=== PATIENT | male | born 1940 | race Caucasian/White ===

== ENCOUNTER 2019-03-24 00:34 | Inpatient (IN) | payer OTHER, MEDICARE ==
--- NOTE | 2019-03-24 00:53 | PDOC ---
History of Present Illness - General Chief Complaint: Injury Stated Complaint: FALL Time Seen by Provider: 03/24/19 00:42 - History of Present Illness Initial Comments: 03/24/19 01:24 This 78-year-old man, history of DM/HTN/HLD/bilateral knee replacement is brought in by ambulance, accompanied by his son with a history of an unwitnessed fall tonight. 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 Patient describes feeling very weak a few hours prior to presentation, possibly" passing out", as he arose from his chair (using his walker) to go to the bathroom. He fell onto his right side; he does not recall hitting his head and when his son arrived in the room a few minutes later, the patient was conscious. Patient is complaining of pain in his right chest wall/right shoulder/right hip and right knee. He has not been able to bear weight since the fall secondary to pain. Son was unable to lift the patient and EMS was called. According to the son, the patient has had several week history of difficulty with persistent nausea and vomiting after meals. He was seen by his map compiler in [place] few weeks ago and endoscopy was planned for yesterday; patient unfortunately was not cleared by cardiology and the procedure is rescheduled for March 26. Son describes patient as currently able to eat only small amounts of water or broth and protein shakes twice a day. Past History - Past Medical History Allergies/Adverse Reactions: Allergies Allergy/AdvReac Type Severity Reaction Status Date / Time No Known Drug Allergies Allergy Verified 03/24/19 00:50 strawberry Allergy Verified 03/24/19 00:50 Home Medications: Ambulatory Orders Atorvastatin Calcium 40 mg PO DAILY 03/24/19 Duloxetine HCl 60 mg PO BID 03/24/19 Furosemide [Lasix] 20 mg PO DAILY 03/24/19 Gabapentin 600 mg PO BID 03/24/19 Lisinopril [Prinivil -] 40 mg PO DAILY 03/24/19 Metformin HCl [Glucophage] 1,000 mg PO BID 03/24/19 levoFLOXacin [Levaquin -] 250 mg PO DAILY 03/24/19 COPD: No Diabetes: Yes HTN: Yes Hypercholesterolemia: Yes Psychiatric Problems: Yes Other medical history: CHRONIC PAIN - Psycho Social/Smoking Cessation Hx Smoking History: Unknown if ever smoked Have you smoked in the past 12 months: No Information on smoking cessation initiated: No Review of Systems - Review of Systems Able to Perform ROS?: Yes Comments:: 12 point review of systems is negative except for what is noted in the history of present illness *Physical Exam - Vital Signs Last Vital Signs Temp Pulse Resp BP Pulse Ox 97.6 F 103 H 16 111/60 100 03/24/19 00:40 03/24/19 00:40 03/24/19 00:40 03/24/19 00:40 03/24/19 00:40 - Physical Exam Comments: GENERAL: Elderly man, alert and oriented x3; in mild distress secondary to pain HEAD: Normal with no signs of trauma. EYES: PERRLA, EOMI, sclera anicteric, conjunctiva clear. ENT: Ears normal, nares patent, oropharynx clear without exudates. Dry mucous membranes. NECK: Normal range of motion, supple without lymphadenopathy, JVD, or masses. Tenderness to palpation midline cervical spine C3-C6 LUNGS: Breath sounds equal, clear to auscultation bilaterally. No wheezes, and no crackles. CHEST WALL: Moderate tenderness to palpation lower right anterior aspect at posterior axillary line; no crepitus or step-offs palpated HEART:Regular rate and rhythm, normal S1 and S2 without murmur, rub or gallop. ABDOMEN:.normal bowel sounds No guarding,tenderness or rebound.No masses No distention. EXTREMITIES: Right upper extremity: Tenderness to palpation posterior proximal humerus without edema, ecchymosis or deformity seen Right lower extremity: Mild tenderness to palpation of anterior aspect of hip joint; Mild tenderness/abrasions anterior knee at patella; no edema, deformity or ecchymosis seen NEUROLOGICAL: Cranial nerves II through XII grossly intact. Normal speech. No focal neurological deficits.Gait not tested MUSCULOSKELETAL: Back non-tender to palpation, no CVA tenderness Twelve-lead electrocardiogram performed. Preliminary interpretation sinus tachycardia at 105 bpm; poor R wave progression; axis, and intervals are normal. No acute ST or T wave abnormality seen. No acute cardiac arrhythmia seen. No prior EKG tracing present for comparison ED Treatment Course - LABORATORY CBC & Chemistry Diagram: 03/24/19 01:55 03/24/19 01:55 Medical Decision Making - Medical Decision Making 78-year-old man with history of DM/HTN/HLD is brought in by ambulance after falling at his son's home, where he is currently staying. Patient has been increasingly weak and having frequent falls over the last several days. He has a history of postprandial vomiting for several weeks; GI work-up including upper endoscopy planned by his map compiler at home in [place]. Meanwhile, the patient's oral intake continues to be poor. Exam as noted Laboratory evaluation including CBC/chemistry profile/troponin and urinalysis sent. Head CT/cervical spine CT as well as R rib series/shoulder/hip and pelvis/knee were performed. CT head and cervical spine preliminary interpretation by Imaging data center consultant: CT of head-no acute intracranial process; no skull fracture moderate left maxillary sinus thickening and air-fluid level consistent with acute sinusitis. Cervical spine-no fracture dislocation Preliminary interpretation(by me)of right shoulder/rib/hip/knee and pelvis x- rays reveal no evidence of acute fracture or other acute pathology. Laboratory abnormalities most notable for BUN of 154.9 with a creatinine of 2.5. Patient and his son were asked about previous history of renal insufficiency: According to the patient, last time he was seen by his PMD in [place] (approximately last month) he was told that he was dehydrated but cannot recall being told that he had kidney damage. Potassium is minimally elevated at 5.4. Random glucose is mildly elevated at 215. He has mild anemia at 11 Hgb/34Hct. Blood cell count is mildly elevated at 11, 500. No significant abnormality seen in UA Since we do not have patient's baseline creatinine/BUN, it is impossible to determine if there is ADRIANE present versus acute dehydration. However, since his BUN is proportionally markedly elevated as compared to his creatinine, there must be some component of dehydration. Since patient has been having frequent falls, with a history suggestive of progressive weakness, inpatient admission warranted for gentle rehydration with assessment of renal function as well as evaluation/treatment of gait disorder. The patient and his son understand the plan and agreed to it. 03/24/19 04:49 Case discussed with ANNEMARIE Stoner of [facility] service: Patient will be admitted as inpatient, Dr. Petty's service Discharge - Discharge Information Problems reviewed: Yes Clinical Impression/Diagnosis: ADRIANE (acute kidney injury), Gait disorder Condition: Fair - Admission Yes - Follow up/Referral - Patient Discharge Instructions - Post Discharge Activity
[2019-03-24] MEDS ORDERED: ACETAMINOPHEN 1000 MG/100 ML VIAL (NON FORMULARY) IVPB ONE (01:23)
[2019-03-24] MEDS ORDERED: ACETAMINOPHEN INJECTION 100 ML IVPB ONE (01:24)
[2019-03-24 02:09] LABS: BASO % 0.8 % (0-2.0); EOS % 1.7 % (0-4.5); HEMATOCRIT 33.9 % (35.4-49); HEMOGLOBIN 11.1 GM/dL (11.7-16.9); LYMPH % 9.1 % (8-40); MCH 30.1 pg (25.7-33.7); MCHC 32.9 g/dl (32.0-35.9); MEAN CELL VOLUME 91.4 fl (80-96); MEAN PLT VOLUME 9.2 fl (7.5-11.1); NEUT % 82.4 % (42.8-82.8); PLATELET COUNT 287 K/MM3 (134-434); RBC 3.71 M/mm3 (4.00-5.60); RDW 15.1 % (11.9-15.9); WHITE BLOOD COUNT 11.3 K/mm3 (4.0-10.0)
[2019-03-24 02:10] LABS: URINE APPEARANCE CLEAR; URINE BILIRUBIN NEGATIVE (NEGATIVE); URINE COLOR YELLOW; URINE GLUCOSE (UA) NEGATIVE (NEGATIVE); URINE KETONE NEGATIVE (NEGATIVE); URINE LEUK ESTERASE NEGATIVE (NEGATIVE); URINE NITRITE NEGATIVE (NEGATIVE); URINE PROTEIN NEGATIVE (NEGATIVE); URINE UROBILINOGEN 0.2 mg/dL (0.2-1.0)
[2019-03-24 03:25] LABS: ALBUMIN 3.1 g/dl (3.4-5.0); ALK PHOS 83 U/L (45-117); ANION GAP 13 MMOL/L (8-16); BILIRUBIN,TOTAL 0.5 mg/dL (0.2-1); CALCIUM 9.4 mg/dL (8.5-10.1); CHLORIDE 102 mmol/L (98-107); CO2 18 mmol/L (21-32); CREATININE 2.5 mg/dL (0.55-1.3); GLUCOSE,RANDOM 215 mg/dL (74-106); POTASSIUM 5.4 mmol/L (3.5-5.1); SGOT/AST 18 U/L (15-37); SGPT/ALT 20 U/L (13-61); SODIUM 133 mmol/L (136-145)
[2019-03-24 03:34] LABS: BLOOD UREA NITROGEN 154.9 mg/dL (7-18)
[2019-03-24] MEDS ORDERED: SODIUM CHLORIDE 1,000 ML IV STA (04:38)
[2019-03-24] MEDS ORDERED: SODIUM CHLORIDE 1,000 ML IV SCH (05:30)
[2019-03-24 06:41] LABS: ANISOCYTOSIS 0; HELMET CELLS 0; HOWELL-JOLLY BODIES 0; MACROCYTOSIS 0; OVALOCYTE 0; PLATELET ESTIMATE NORMAL; ROULEAU 0; SICKELED CELLS 0; TARGET CELLS 0; TEAR DROP CELLS 0; TOXIC GRANULATION 0
[2019-03-24 07:05] VITALS: BMI 26.1
--- NOTE | 2019-03-24 08:44 | HP ---
CHIEF COMPLAINT: s/p unwitnessed fall PCP: Cathi Haley Dr. HISTORY OF PRESENT ILLNESS: This is a 78-year-old man with a history of DM/HTN/HLD/bilateral knee replacement and chronic pain, who was BIBA from home by his son for the evaluation lower back pain after an unwitnessed fall. Pt reports that when he tried to get up from the chair to go the bathroom using his walker, lost balance and fell on his Rt side. Denies LOC or head injury. Son found him on the floor face down and he was not able to lift the patient so he called EMS. Off note, pt was living with his in [place], since his had a recent CVA,now he stays with his son for few weeks. According to his son, he has not eating solid food due to nausea/ vomiting, and noted to have worsening weakness. Son reports,currently he is only able to eat small amounts of water or broth and protein shakes twice a day. Pt was reportedly seen by a GI doctor in [place] recently and rec Endoscopy but pt was not cleared by cardiology for the procedure. As per son, pt was seen by PMD last week and reported mildly elevated renal functions( unknown baseline). ER course was notable for: (1) wbc 11.3, H/H 11.1/33.9, N 133, K 5.4,, BUN 154,cre 2.5, trop <0.2 (2)CT head and cervical spine - no acute fracture (3)Ribs X'ray: No acute pneumonia or rib fx noted Recent Travel:No PAST MEDICAL HISTORY: Prostate Ca, s/p radiation PAST SURGICAL HISTORY: bilateral knee replacement, 7operations on right foot and 4 operations on left Social History: Smoking:No Alcohol:No Drugs: No Family Hx - unknown Allergies No Known Drug Allergies Allergy (Verified 03/24/19 00:50) strawberry Allergy (Verified 03/24/19 00:50) HOME MEDICATIONS: Home Medications Medication Instructions Recorded Atorvastatin Calcium 40 mg PO DAILY 03/24/19 Duloxetine HCl 60 mg PO BID 03/24/19 Furosemide [Lasix] 20 mg PO DAILY 03/24/19 Gabapentin 600 mg PO BID 03/24/19 Lisinopril [Prinivil -] 40 mg PO DAILY 03/24/19 Metformin HCl [Glucophage] 1,000 mg PO BID 03/24/19 levoFLOXacin [Levaquin -] 250 mg PO DAILY 03/24/19 REVIEW OF SYSTEMS CONSTITUTIONAL: Absent: fever, chills, diaphoresis, weight change positive generalized weakness, malaise, loss of appetite HEENT: Absent: rhinorrhea, nasal congestion, throat pain, throat swelling, difficulty swallowing, mouth swelling, ear pain, eye pain, visual changes CARDIOVASCULAR: Absent: chest pain, syncope, palpitations, irregular heart rate, lightheadedness , peripheral edema RESPIRATORY: Absent: cough, shortness of breath, dyspnea with exertion, orthopnea, wheezing, stridor, hemoptysis GASTROINTESTINAL: Absent: abdominal pain, abdominal distension, nausea, vomiting, diarrhea, constipation, melena, hematochezia GENITOURINARY: Absent: dysuria, frequency, urgency, hesitancy, hematuria, flank pain, genital pain MUSCULOSKELETAL: Absent: myalgia, arthralgia, joint swelling, back pain, neck pain SKIN: Absent: rash, itching, pallor HEMATOLOGIC/IMMUNOLOGIC: Absent: easy bleeding, easy bruising, lymphadenopathy, frequent infections ENDOCRINE: Absent: unexplained weight gain, unexplained weight loss, heat intolerance, cold intolerance NEUROLOGIC: Absent: headache, focal weakness or paresthesias, dizziness, unsteady gait, seizure, mental status changes, bladder or bowel incontinence PSYCHIATRIC: Absent: anxiety, depression, suicidal or homicidal ideation, hallucinations. PHYSICAL EXAMINATION Vital Signs - 24 hr 03/24/19 03/24/19 03/24/19 00:40 04:25 06:00 Temperature 97.6 F 97.3 F L 97.4 F L Pulse Rate 103 H 102 H Pulse Rate [ 100 H Radial] Respiratory 16 16 19 Rate Blood Pressure 111/60 126/50 L Blood Pressure 107/60 [Arm] O2 Sat by Pulse 100 96 Oximetry (%) 03/24/19 06:29 Temperature 97.4 F L Pulse Rate 102 H Pulse Rate [ Radial] Respiratory 19 Rate Blood Pressure 126/50 L Blood Pressure [Arm] O2 Sat by Pulse 96 Oximetry (%) GENERAL: Awake, alert, responsive but forgetful,no acute distress. HEAD: Normal with no signs of trauma. EYES: Pupils equal, round and reactive to light, extraocular movements intact, sclera anicteric, conjunctiva clear. No lid lag. EARS, NOSE, THROAT: Ears normal, nares patent, oropharynx clear without exudates. Moist mucous membranes. NECK: Normal range of motion, supple without lymphadenopathy, JVD, or masses. LUNGS: Breath sounds equal, clear to auscultation bilaterally. No wheezes, and no crackles. No accessory muscle use. HEART: Regular rate and rhythm, normal S1 and S2 without murmur, rub or gallop. ABDOMEN: Soft, nontender, not distended, normoactive bowel sounds, no guarding, no rebound, no masses. No hepatomegaly or splenomegaly. MUSCULOSKELETAL: Normal range of motion at all joints. No bony deformities or tenderness. No CVA tenderness. UPPER EXTREMITIES: 2+ pulses, warm, well-perfused. No cyanosis. No clubbing. No peripheral edema. LOWER EXTREMITIES: 2+ pulses, warm, well-perfused. No calf tenderness. No peripheral edema. RLE with PVD and chronic discoloration, pulse intact, and NEUROLOGICAL: Cranial nerves II-XII intact. Normal speech. gait not tested PSYCHIATRIC: Cooperative. Good eye contact. Appropriate mood and affect. SKIN: Warm, dry, normal turgor, no rashes or lesions noted, normal capillary refill. Tiny abrasions on Rt knee and Rt 2nd toe. Laboratory Results - last 24 hr 03/24/19 03/24/19 03/24/19 01:05 01:55 01:55 WBC 11.3 H RBC 3.71 L Hgb 11.1 L Hct 33.9 L MCV 91.4 MCH 30.1 MCHC 32.9 RDW 15.1 Plt Count 287 MPV 9.2 Absolute Neuts (auto) 9.3 H Neutrophils % 82.4 Neutrophils % (Manual) 81.8 Band Neutrophils % 1.0 Lymphocytes % 9.1 Lymphocytes % (Manual) 9.1 Monocytes % 6.0 Monocytes % (Manual) 5 Eosinophils % 1.7 Eosinophils % (Manual) 2.0 Basophils % 0.8 Basophils % (Manual) 0.0 Myelocytes % (Man) 0 Promyelocytes % (Man) 0 Blast Cells % (Manual) 0 Nucleated RBC % 0 Metamyelocytes 1 Hypochromia 0 Toxic Granulation 0 Dohle Bodies 0 Platelet Estimate Normal Polychromasia 0 Poikilocytosis 0 Basophilic Stippling 0 Anisocytosis 0 Microcytosis 0 Macrocytosis 0 Spherocytes 0 Sickle Cells 0 Target Cells 0 Tear Drop Cells 0 Ovalocytes 0 Stomatocytes 0 Helmet Cells 0 [place] Bodies 0 [place] Rings 0 [place] Cells 0 Acanthocytes (Spur) 0 Rouleaux 0 Fragmented RBCs 0 Schistocytes 0 Sodium 133 L Potassium 5.4 H Chloride 102 Carbon Dioxide 18 L Anion Gap 13 BUN 154.9 H* Creatinine 2.5 H Est GFR (CKD-EPI)AfAm 27.86 Est GFR (CKD-EPI)NonAf 24.04 Random Glucose 215 H Calcium 9.4 Total Bilirubin 0.5 AST 18 ALT 20 Alkaline Phosphatase 83 Creatine Kinase 171 Creatine Kinase Index 3.3 CK-MB (CK-2) 5.7 H Troponin I < 0.02 Total Protein 6.0 L Albumin 3.1 L Urine Color Yellow Urine Appearance Clear Urine pH 5.0 Ur Specific Burden 1.013 Urine Protein Negative Urine Glucose (UA) Negative Urine Ketones Negative Urine Blood Negative Urine Nitrite Negative Urine Bilirubin Negative Urine Urobilinogen 0.2 Ur Leukocyte Esterase Negative 03/24/19 01:55 WBC RBC Hgb Hct MCV MCH MCHC RDW Plt Count MPV Absolute Neuts (auto) Neutrophils % Neutrophils % (Manual) Band Neutrophils % Lymphocytes % Lymphocytes % (Manual) Monocytes % Monocytes % (Manual) Eosinophils % Eosinophils % (Manual) Basophils % Basophils % (Manual) Myelocytes % (Man) Promyelocytes % (Man) Blast Cells % (Manual) Nucleated RBC % Metamyelocytes Hypochromia Toxic Granulation Dohle Bodies Platelet Estimate Polychromasia Poikilocytosis Basophilic Stippling Anisocytosis Microcytosis Macrocytosis Spherocytes Sickle Cells Target Cells Tear Drop Cells Ovalocytes Stomatocytes Helmet Cells [place] Bodies [place] Rings [place] Cells Acanthocytes (Spur) Rouleaux Fragmented RBCs Schistocytes Sodium Potassium Chloride Carbon Dioxide Anion Gap BUN Creatinine Est GFR (CKD-EPI)AfAm Est GFR (CKD-EPI)NonAf Random Glucose Calcium Total Bilirubin AST ALT Alkaline Phosphatase Creatine Kinase Cancelled Creatine Kinase Index CK-MB (CK-2) Troponin I Cancelled Total Protein Albumin Urine Color Urine Appearance Urine pH Ur Specific [place] Urine Protein Urine Glucose (UA) Urine Ketones Urine Blood Urine Nitrite Urine Bilirubin Urine Urobilinogen Ur Leukocyte Esterase CT cervical spine: Severe DJD, no acute fracture CT Head: Left maxillary sinusitis, no acute intracranial pathology Rt Knee : No acute fracture Hip X'ray: No acute fracture Ribs X'ray: No acute fracture or pneumothorax ASSESSMENT/PLAN: This 78-year-old man, history of DM/HTN/HLD/bilateral knee replacement,and chronic pain, who was BIBA from home by his son for evaluation unwitnessed fall. Imaging ruled out acute fx. *S/p fall - unwitnessed, ? due to dehydration and worsening weakness - Imaging ruled out acute fx - PT eval - will check orthostatic vitals * ADRIANE, unknown baseline, likely due to poor PO intake - elevated BUN/ cre slowly trending down - will cont on IVF - if remains elevated consider renal US - will hold off Lisinopril and Metformin - will f/u on Stock Sorter * Poor appetite,Nausea/ vomiting -will start on PPI -if nausea/ vomiting persist, will need GI consult - will monitor diet brooke -pt was seen by GI in [place] recently and rec Endoscopy but pt was not cleared by cardiology for the procedure. -will need to reach out to cardiology in AM * Leukocytosis - likely reactive - UA negative,lungs clear on Rib Xray's - afebrile * DM - Insulin sliding scale - FS monitoring Ac & HS -Carb counting diet * HTN - will hold off Lisinopril and Lasix in view of ADRIANE - will monitor BP * HDL -on Statin * Chronic pain - on Cymbalta and Neurontin * VTE: Heparin SQ * F/E/N - Diabetic , Heart Healthy Diet - replace electrolytes as needed Code status: Full code as per son Gaston Grayson, tele# [phone] - Visit type - Emergency Visit Emergency Visit: Yes ED Registration Date: 03/24/19 Care time: The patient presented to the Emergency Department on the above date and was hospitalized for further evaluation of their emergent condition. - New Patient This patient is new to me today: Yes Date on this admission: 03/24/19 - Critical Care Critical Care patient: No
[2019-03-24] MEDS ORDERED: PATIENT'S OWN MEDICATION (NON-FORMULARY) (Lisinopril [Prinivil -] 40 MG) PO SCH (10:00)
[2019-03-24 10:05] LABS: CREATININE 2.3 mg/dl (0.55-1.3)
[2019-03-24 11:24] LABS: POTASSIUM 4.9 mmol/L (3.5-5.1)
[2019-03-24 11:28] LABS: BLOOD UREA NITROGEN 147.6 mg/dL (7-18)
[2019-03-24] MEDS ORDERED: INSULIN (NOVOLOG) ASPART 100 UNITS/ML 10ML VIAL ONE ×2 (11:54→21:08)
[2019-03-24] MEDS: DULoxetine HCL 30 MG CAPSULE.DR PO SCH ×2 (11:59→21:17)
[2019-03-24] MEDS: HEPARIN NA (PORCINE) 5,000 UNITS/ML 1ML VIAL SQ SCH ×2 (12:00→21:17)
[2019-03-24] MEDS: INSULIN SLIDING SCALE (NOVOLOG) 1 VIAL SQ SCH ×3 (12:00→21:18)
[2019-03-24] MEDS: SODIUM CHLORIDE 1,000 ML IV SCH (12:01)
[2019-03-24] MEDS: PANTOPRAZOLE 40 MG TABLET (FP) PO SCH (12:01)
--- NOTE | 2019-03-24 13:44 | EKG ---
Test Reason : Blood Pressure : / mmHG Vent. Rate : 105 BPM Atrial Rate : 105 BPM P-R Int : 208 ms QRS Dur : 094 ms QT Int : 336 ms P-R-T Axes : 000 136 147 degrees QTc Int : 444 ms SINUS TACHYCARDIA LOW VOLTAGE QRS LEFT POSTERIOR FASCICULAR BLOCK CANNOT RULE OUT INFERIOR INFARCT , AGE UNDETERMINED ABNORMAL ECG NO PREVIOUS ECGS AVAILABLE Confirmed by MD An, Varun ([id number]) on 03/24/2019 1:44:10 PM Referred By: DR BERMEO Confirmed By:Varun Nolan MD
[2019-03-24] MEDS ORDERED: SODIUM CHLORIDE 500 ML IV STA (14:23)
[2019-03-24] MEDS: ATORVASTATIN CA 40 MG TABLET (FP) PO SCH (21:17)
[2019-03-25] MEDS: INSULIN SLIDING SCALE (NOVOLOG) 1 VIAL SQ SCH ×4 (06:31→21:28)
[2019-03-25] MEDS ORDERED: FLU VACCINE QUAD 60 MCG/0.5 ML (MDV 19-20) IM ONE (07:14)
[2019-03-25 08:16] LABS: BASO % 1.3 % (0-2.0); HEMATOCRIT 30.1 % (35.4-49); HEMOGLOBIN 9.6 GM/dl (11.7-16.9); LYMPH % 14.6 % (8-40); MCH 29.8 pg (25.7-33.7); MCHC 31.8 g/dl (32.0-35.9); MEAN CELL VOLUME 93.5 fl (80-96); MEAN PLT VOLUME 8.7 fl (7.5-11.1); MONO % 7.1 % (3.8-10.2); PLATELET COUNT 234 K/MM3 (134-434); RBC 3.22 M/mm3 (4.00-5.60); RDW 14.5 % (11.9-15.9); WHITE BLOOD COUNT 6.2 K/mm3 (4.0-10.8)
[2019-03-25 09:45] LABS: ANION GAP 7 MMOL/L (8-16); CALCIUM 8.7 mg/dL (8.5-10.1); CHLORIDE 116 mmol/L (98-107); CO2 20 mmol/L (21-32); CREATININE 1.8 mg/dL (0.55-1.3); GLUCOSE,RANDOM 191 mg/dL (74-106); POTASSIUM 4.8 mmol/L (3.5-5.1); SODIUM 143 mmol/L (136-145)
[2019-03-25] MEDS: DULoxetine HCL 30 MG CAPSULE.DR PO SCH ×2 (09:54→21:25)
[2019-03-25] MEDS: PANTOPRAZOLE 40 MG TABLET (FP) PO SCH (09:54)
[2019-03-25] MEDS: GABAPENTIN 300 MG CAPSULE (FP) PO SCH ×2 (09:55→21:25)
[2019-03-25] MEDS: HEPARIN NA (PORCINE) 5,000 UNITS/ML 1ML VIAL SQ SCH ×2 (09:56→21:27)
[2019-03-25 10:02] LABS: BLOOD UREA NITROGEN 119.1 mg/dL (7-18)
[2019-03-25] MEDS: SODIUM CHLORIDE 1,000 ML IV SCH (11:57)
--- NOTE | 2019-03-25 14:04 | PN ---
Physical Exam: SUBJECTIVE: Patient seen and examined at bedside. Has right sided rib pain with position change. Former smoker, has a chronic cough productive of whitish sputum. Has had 7 surgeries on right leg for diabetic wounds. OBJECTIVE: Vital Signs Period Temp Pulse Resp BP Sys/[place] Pulse Ox Last 24 Hr 97.6 F-97.9 F 94-100 17-18 97-123/44-69 99-100 GENERAL: The patient is awake, alert, and fully oriented, in no acute distress. Unkempt. Edentulous HEAD: Normal with no signs of trauma. LUNGS: diffuse rhonchi HEART: Regular rate and rhythm, S1, S2 without murmur, rub or gallop. ABDOMEN: Soft, nontender, nondistended RLE: foot and lower leg with dusky colored well-healed scarring; foot is warm, palpable pulse NEUROLOGICAL: Cranial nerves II through XII grossly intact. Normal speech, gait not observed. Laboratory Results - last 24 hr 03/24/19 03/24/19 03/25/19 15:55 21:15 06:15 WBC 6.2 RBC 3.22 L Hgb 9.6 L Hct 30.1 L MCV 93.5 MCH 29.8 MCHC 31.8 L RDW 14.5 Plt Count 234 MPV 8.7 Absolute Neuts (auto) 4.6 Neutrophils % 73.0 Lymphocytes % 14.6 Monocytes % 7.1 Eosinophils % 4.0 Basophils % 1.3 Sodium Potassium Chloride Carbon Dioxide Anion Gap BUN Creatinine Est GFR (CKD-EPI)AfAm Est GFR (CKD-EPI)NonAf POC Glucometer 181 158 Random Glucose Calcium Troponin I 03/25/19 03/25/19 03/25/19 06:15 06:15 06:27 WBC RBC Hgb Hct MCV MCH MCHC RDW Plt Count MPV Absolute Neuts (auto) Neutrophils % Lymphocytes % Monocytes % Eosinophils % Basophils % Sodium 143 Potassium 4.8 Chloride 116 H Carbon Dioxide 20 L Anion Gap 7 L BUN 119.1 H* Creatinine 1.8 H Est GFR (CKD-EPI)AfAm 41.45 Est GFR (CKD-EPI)NonAf 35.76 POC Glucometer 170 Random Glucose 191 H Calcium 8.7 Troponin I < 0.02 Cancelled 03/25/19 11:53 WBC RBC Hgb Hct MCV MCH MCHC RDW Plt Count MPV Absolute Neuts (auto) Neutrophils % Lymphocytes % Monocytes % Eosinophils % Basophils % Sodium Potassium Chloride Carbon Dioxide Anion Gap BUN Creatinine Est GFR (CKD-EPI)AfAm Est GFR (CKD-EPI)NonAf POC Glucometer 222 Random Glucose Calcium Troponin I Active Medications Generic Name Dose Route Start Last Admin Trade Name Mike PRN Reason Stop Dose Admin Atorvastatin Calcium 40 mg 03/24/19 22:00 03/24/19 21:17 Lipitor - PO 40 mg HS STEPAN Administration Duloxetine HCl 60 mg 03/24/19 10:00 03/25/19 09:54 Cymbalta - PO 60 mg BID STEPAN Administration Gabapentin 600 mg 03/25/19 10:00 03/25/19 09:55 Neurontin - PO 600 mg BID STEPAN Administration Heparin Sodium (Porcine) 5,000 unit 03/24/19 10:00 03/25/19 09:56 Heparin - SQ 5,000 unit BID STEPAN Administration Sodium Chloride 1,000 mls @ 75 mls/hr 03/24/19 11:45 03/25/19 11:57 Normal Saline - IV 75 mls/hr ASDIR STEPAN Administration Influenza Virus Vaccine Quadrival 60 mcg 03/25/19 07:14 03/25/19 09:55 Flulaval Quad [id number] IM 03/25/19 07:15 Not Given .ONCE ONE Insulin Aspart 1 vial 03/24/19 11:00 03/25/19 11:56 Novolog Vial Sliding Scale - SQ 4 units ACHS STEPAN Administration Protocol Pantoprazole Sodium 40 mg 03/24/19 11:00 03/25/19 09:54 Protonix - PO 40 mg DAILY STEPAN Administration ASSESSMENT/PLAN 78 year-old male with a PMH significant for HTN, HLD, Type II NIDDM, and prostate cancer. Admitted following a mechanical fall. Mechanical fall Frequent falls Gait instability --struck head, patient does not know if there was LOC; not on anticoagulation or ASA; CT head negative x 2 --imaging negative for acute fractures --RLE with extensive scarring, blackened areas of skin on leg and foot, patient states 7 surgeries on the leg to close diabetic wounds; will get vascular consult Acute kidney injury --BUN 154.9 on admission trending down-->119 --Cr 2.5 on admission, trending down -->1.8 --renal consult --IV fluids Hypertension --BP stable --not on anti-hypertensives Hyperlipidemia --continue Lipitor Type II NIDDM --Novolog sliding scale coverage Prostate cancer --stable FEN Fluids: NS@75mL/hr Electrolytes: replete as indicated NutritionL low sodium, diabetic DVT prophylaxis: subq heparin Physical therapy Dispo: continues to require inpatient care. Full code. Visit type - Emergency Visit Emergency Visit: Yes ED Registration Date: 03/24/19 Care time: The patient presented to the Emergency Department on the above date and was hospitalized for further evaluation of their emergent condition. - New Patient This patient is new to me today: Yes Date on this admission: 03/25/19 - Critical Care Critical Care patient: No
--- NOTE | 2019-03-25 16:02 | EKG ---
Test Reason : Blood Pressure : / mmHG Vent. Rate : 092 BPM Atrial Rate : 092 BPM P-R Int : 170 ms QRS Dur : 088 ms QT Int : 352 ms P-R-T Axes : 232 261 252 degrees QTc Int : 435 ms UNUSUAL P AXIS, POSSIBLE ECTOPIC ATRIAL RHYTHM LOW VOLTAGE QRS T WAVE ABNORMALITY, CONSIDER INFERIOR ISCHEMIA ABNORMAL ECG WHEN COMPARED WITH ECG OF 24-MAR-2019 01:27, ECTOPIC ATRIAL RHYTHM HAS REPLACED SINUS RHYTHM T WAVE VARIATION Confirmed by CHRISTOPHE SOUZA, DENVER ([id number]) on 03/25/2019 4:02:06 PM Referred By: VIVIAN SHEPARD Confirmed By:DENVER SAEED MD
--- NOTE | 2019-03-25 16:52 | ECHO ---
Name: LUIS FELICIANO Exam:Adult Echocardiogram Study Date: 03/25/2019 03:34 PM Age: 78 yrs MMode/2D Measurements & Calculations IVSd: 1.1 cm Ao root diam: 2.9 cm LVIDd: 2.9 cm LA dimension: 2.7 cm LVIDs: 2.0 cm LVPWd: 1.1 cm LVPWs: 0.75 cm EDV(Teich): 33.3 ml ESV(Teich): 13.4 ml Doppler Measurements & Calculations MV E max natalia: 64.2 cm/sec MV dec slope: 785.1 cm/sec2 MV A max natalia: 102.6 cm/sec MV E/A: 0.63 Ao V2 max: 100.3 cm/sec LV V1 max P.0 mmHg Ao max P.0 mmHg LV V1 max: 86.4 cm/sec PA V2 max: 111.2 cm/sec PA max P.9 mmHg Tech Comments technically difficult. Procedure A complete two-dimensional transthoracic echocardiogram was performed (2D, M-mode, Doppler and color flow Doppler). Severely limited study. Left Ventricle The left ventricle is normal in size. Left ventricular systolic function is normal. Ejection Fraction = 60- 65%. No regional wall motion abnormalities noted. Right Ventricle The right ventricle is not well visualized. Atria The left atrial size is normal. Right atrial size is normal. Mitral Valve The mitral valve is normal in structure and function. There is no mitral regurgitation noted. Tricuspid Valve The tricuspid valve is normal in structure and function. No tricuspid regurgitation. Aortic Valve There is mild aortic sclerosis.;. Mild aortic regurgitation. Pulmonic Valve The pulmonic valve is not well visualized. Great Vessels The aortic root is normal size. Pericardium/Pleura There is no pericardial effusion. Interpretation Summary Severely limited study The left ventricle is normal in size. Left ventricular systolic function is normal. No regional wall motion abnormalities noted. Ejection Fraction = 60-65%. The left atrial size is normal. Right atrial size is normal. There is mild aortic sclerosis. Mild aortic regurgitation. There is no pericardial effusion. Jorge Almazan MD 03/25/2019 04:52 PM
[2019-03-25] MEDS: ALBUTEROL SO4 2.5/IPRATROPIUM 0.5 INH SOL 3 ML VIAL.NEB. NEB SCH (21:25)
[2019-03-25] MEDS: ATORVASTATIN CA 40 MG TABLET (FP) PO SCH (21:25)
--- NOTE | 2019-03-26 06:34 | PN ---
Physical Exam: SUBJECTIVE: Patient seen and examined at bedside. OBJECTIVE: Vital Signs Period Temp Pulse Resp BP Sys/[place] Pulse Ox Last 24 Hr 97.7 F-98.7 F 92-96 16-20 102-126/56-69 100-100 GENERAL: The patient is awake, alert, and fully oriented, in no acute distress. LUNGS: diffuse rhonchi HEART: Regular rate and rhythm, S1, S2 without murmur, rub or gallop. ABDOMEN: Soft, nontender, nondistended RLE: foot and lower leg with dusky colored well-healed scarring; foot is warm, palpable pulse; wound on tip of third toe NEUROLOGICAL: Cranial nerves II through XII grossly intact. Normal speech, gait not observed. Laboratory Results - last 24 hr 03/25/19 03/25/19 03/25/19 06:15 06:15 06:15 WBC 6.2 RBC 3.22 L Hgb 9.6 L Hct 30.1 L MCV 93.5 MCH 29.8 MCHC 31.8 L RDW 14.5 Plt Count 234 MPV 8.7 Absolute Neuts (auto) 4.6 Neutrophils % 73.0 Lymphocytes % 14.6 Monocytes % 7.1 Eosinophils % 4.0 Basophils % 1.3 Sodium 143 Potassium 4.8 Chloride 116 H Carbon Dioxide 20 L Anion Gap 7 L BUN 119.1 H* Creatinine 1.8 H Est GFR (CKD-EPI)AfAm 41.45 Est GFR (CKD-EPI)NonAf 35.76 POC Glucometer Random Glucose 191 H Calcium 8.7 Troponin I < 0.02 Cancelled 03/25/19 03/25/19 03/25/19 11:53 16:24 21:23 WBC RBC Hgb Hct MCV MCH MCHC RDW Plt Count MPV Absolute Neuts (auto) Neutrophils % Lymphocytes % Monocytes % Eosinophils % Basophils % Sodium Potassium Chloride Carbon Dioxide Anion Gap BUN Creatinine Est GFR (CKD-EPI)AfAm Est GFR (CKD-EPI)NonAf POC Glucometer 222 175 264 Random Glucose Calcium Troponin I 03/26/19 06:26 WBC RBC Hgb Hct MCV MCH MCHC RDW Plt Count MPV Absolute Neuts (auto) Neutrophils % Lymphocytes % Monocytes % Eosinophils % Basophils % Sodium Potassium Chloride Carbon Dioxide Anion Gap BUN Creatinine Est GFR (CKD-EPI)AfAm Est GFR (CKD-EPI)NonAf POC Glucometer 202 Random Glucose Calcium Troponin I Active Medications Generic Name Dose Route Start Last Admin Trade Name Mike PRN Reason Stop Dose Admin Albuterol/Ipratropium 1 amp 03/25/19 20:00 03/25/19 21:25 Duoneb - NEB 1 amp RTID STEPAN Administration Atorvastatin Calcium 40 mg 03/24/19 22:00 03/25/19 21:25 Lipitor - PO 40 mg HS STEPAN Administration Duloxetine HCl 60 mg 03/24/19 10:00 03/25/19 21:25 Cymbalta - PO 60 mg BID STEPAN Administration Gabapentin 600 mg 03/25/19 10:00 03/25/19 21:25 Neurontin - PO 600 mg BID STEPAN Administration Heparin Sodium (Porcine) 5,000 unit 03/24/19 10:00 03/25/19 21:27 Heparin - SQ 5,000 unit BID STEPAN Administration Sodium Chloride 1,000 mls @ 75 mls/hr 03/24/19 11:45 03/25/19 11:57 Normal Saline - IV 75 mls/hr ASDIR STEPAN Administration Influenza Virus Vaccine Quadrival 60 mcg 03/25/19 07:14 03/25/19 09:55 Flulaval Quad [id number] IM 03/25/19 07:15 Not Given .ONCE ONE Insulin Aspart 1 vial 03/24/19 11:00 03/25/19 21:28 Novolog Vial Sliding Scale - SQ 6 units ACHS STEPAN Administration Protocol Pantoprazole Sodium 40 mg 03/24/19 11:00 03/25/19 09:54 Protonix - PO 40 mg DAILY STEPAN Administration ASSESSMENT/PLAN 78 year-old male with a PMH significant for HTN, HLD, Type II NIDDM, and prostate cancer. Admitted following a mechanical fall. Mechanical fall Frequent falls Gait instability --CT head negative x 2 --all imaging negative for acute fractures --RLE with extensive scarring, blackened areas of skin on leg and foot, patient states 7 surgeries on the leg to close diabetic wounds; seen and evaluated by vascular, can follow up wound clinic Acute kidney injury --BUN 154.9 on admission trending down-->63 --Cr 2.5 on admission, trending down -->1.4 --renal consult: continue fluids at same rate --IV fluids Hypertension --BP stable --not on anti-hypertensives Hyperlipidemia --continue Lipitor Type II NIDDM --Novolog sliding scale coverage Prostate cancer --stable FEN Fluids: NS@75mL/hr Electrolytes: replete as indicated NutritionL low sodium, diabetic DVT prophylaxis: subq heparin Physical therapy Dispo: continues to require inpatient care. Full code. Visit type - Emergency Visit Emergency Visit: Yes ED Registration Date: 03/24/19 Care time: The patient presented to the Emergency Department on the above date and was hospitalized for further evaluation of their emergent condition. - New Patient This patient is new to me today: No - Critical Care Critical Care patient: No
[2019-03-26] MEDS: INSULIN SLIDING SCALE (NOVOLOG) 1 VIAL SQ SCH ×4 (07:10→21:10)
[2019-03-26] MEDS: ALBUTEROL SO4 2.5/IPRATROPIUM 0.5 INH SOL 3 ML VIAL.NEB. NEB SCH ×3 (08:21→21:08)
[2019-03-26 09:02] LABS: BASO % 1.7 % (0-2.0); EOS % 3.8 % (0-4.5); HEMATOCRIT 28.4 % (35.4-49); HEMOGLOBIN 9.4 GM/dl (11.7-16.9); LYMPH % 12.6 % (8-40); MCH 30.5 pg (25.7-33.7); MCHC 33.2 g/dl (32.0-35.9); MEAN CELL VOLUME 91.8 fl (80-96); MEAN PLT VOLUME 8.5 fl (7.5-11.1); MONO % 8.3 % (3.8-10.2); NEUT % 73.6 % (42.8-82.8); PLATELET COUNT 228 K/MM3 (134-434); RBC 3.09 M/mm3 (4.00-5.60); RDW 14.3 % (11.9-15.9); WHITE BLOOD COUNT 5.7 K/mm3 (4.0-10.8)
[2019-03-26 09:05] LABS: ALBUMIN 2.6 g/dl (3.4-5.0); BILIRUBIN,TOTAL 0.2 mg/dl (0.2-1); CALCIUM 8.5 mg/dl (8.5-10); CREATININE 1.4 mg/dl (0.55-1.3); MAGNESIUM 1.8 mg/dL (1.8-2.4); POTASSIUM 4.6 mmol/L (3.5-5.1); TOT PROT 4.9 g/dl (6.4-8.2)
[2019-03-26] MEDS: DULoxetine HCL 30 MG CAPSULE.DR PO SCH ×2 (10:22→21:10)
[2019-03-26] MEDS: HEPARIN NA (PORCINE) 5,000 UNITS/ML 1ML VIAL SQ SCH ×2 (10:22→21:09)
[2019-03-26] MEDS: GABAPENTIN 300 MG CAPSULE (FP) PO SCH ×2 (10:22→21:09)
[2019-03-26] MEDS: PANTOPRAZOLE 40 MG TABLET (FP) PO SCH (10:23)
--- NOTE | 2019-03-26 11:07 | CONSULT ---
Consult - text type - Consultation Consultation Note: Renal consult for ADRIANE This is a 78 year old gentleman with history of diabetes mellitus, hypertension , hyperlipidemia, OA s/p knee replacements who presented s/p fall and found to have acute renal failure. Seen and examined at the bedside. Is oriented x 2 and not able to provide much history. Does report some nausea and vomiting at home but not able to provide duration. Denies any flank pain, dysuria, frequency or urgency. Reports good appetite even at home. No fever or chills. Making urine w/ o difficulty now. On IVF and renal function improving. PMhx: as above Allergies: NKDA Family Hx: NC Social Hx: no T/A/D ROS: as per HPI Home Medications Medication Instructions Recorded Atorvastatin Calcium 40 mg PO DAILY 03/24/19 Duloxetine HCl 60 mg PO BID 03/24/19 Furosemide [Lasix] 20 mg PO DAILY 03/24/19 Gabapentin 600 mg PO BID 03/24/19 Lisinopril [Prinivil -] 40 mg PO DAILY 03/24/19 Metformin HCl [Glucophage] 1,000 mg PO BID 03/24/19 levoFLOXacin [Levaquin -] 250 mg PO DAILY 03/24/19 Vital Signs Temperature 98.4 F 03/26/19 10:12 Pulse Rate 101 H 03/26/19 10:12 Respiratory Rate 03/26/19 10:12 Blood Pressure 140/74 03/26/19 10:12 O2 Sat by Pulse Oximetry (%) 100 03/25/19 21:00 Intake & Output 03/23/19 03/24/19 03/25/19 03/26/19 23:59 23:59 23:59 23:59 Intake Total 3122 2805 1475 Output Total 600 400 Balance 2522 2405 1475 Weight 82.554 kg NAD awake and alert neck supple, no JVD RRR Dec BS at lung bases soft, + mild tenderness of the abdomen no LE edema, clubbing or cyanosis CBC, BMP 03/26/19 08:18 03/26/19 08:18 Laboratory Tests 03/24/19 03/24/19 03/25/19 01:55 08:27 06:15 BUN 154.9 H* 147.6 H* 119.1 H* Creatinine 2.5 H 2.3 H 1.8 H 03/26/19 08:18 BUN 63.0 H Creatinine 1.4 H Laboratory Tests 03/24/19 01:05 Urine Protein Negative Urine Blood Negative Current Medications Albuterol/Ipratropium (Duoneb -) 1 amp NEB RTID [facility] Last Admin: 03/26/19 08:21 Dose: 1 amp Atorvastatin Calcium (Lipitor -) 40 mg PO HS [facility] Last Admin: 03/25/19 21:25 Dose: 40 mg Duloxetine HCl (Cymbalta -) 60 mg PO BID [facility] Last Admin: 03/26/19 10:22 Dose: 60 mg Gabapentin (Neurontin -) 600 mg PO BID [facility] Last Admin: 03/26/19 10:22 Dose: 600 mg Heparin Sodium (Porcine) (Heparin -) 5,000 unit SQ BID [facility] Last Admin: 03/26/19 10:22 Dose: 5,000 unit Sodium Chloride (Normal Saline -) 1,000 mls @ 75 mls/hr IV ASDIR [facility] Last Admin: 03/25/19 11:57 Dose: 75 mls/hr Influenza Virus Vaccine Quadrival (Flulaval Quad ) 60 mcg IM .ONCE ONE Stop: 03/25/19 07:15 Last Admin: 03/25/19 09:55 Dose: Not Given Insulin Aspart (Novolog Vial Sliding Scale -) [address] [facility]; Protocol Last Admin: 03/26/19 07:10 Dose: 4 units Pantoprazole Sodium (Protonix -) 40 mg PO DAILY [facility] Last Admin: 03/26/19 10:23 Dose: 40 mg 78 year old gentleman with history of diabetes mellitus, hypertension, hyperlipidemia, OA s/p knee replacements who presented s/p fall and found to have acute renal failure. 1. Acute kidney injury likely due to intravascular volume depletion +/- tubular injury (ACEi) +/- urinary retention 2. S/p Fall 3. Hypertension 4. DM type 2 5. Anemia Renal function improving with IVF, would continue present IVF at same rate continue oral intake as tolerated Check Abd US to determine if there is any pathology within the abdomen that may have caused the N/V withhold diuretics and ACEi for now Urine w/o blood or protein Trend H/H, check iron studies. Isma Ferrer DO
[2019-03-26] MEDS: SODIUM CHLORIDE 1,000 ML IV SCH (12:51)
--- NOTE | 2019-03-26 13:48 | PROC ---
Procedure Note Procedure: Vascular surgery: Called to see pt for skin changes to RLE. Health information taken from the chart. He was admitted to the hospital after an unwitnessed fall. He has had multiple surgeries to his RLE for diabetic wounds. The patient is uncertain if the skin changes are chronic to his RLE. PMHX: prostate cancer s/p radiation, DM, TEN, HLD PSHX: b/l knee replacement Vital Signs Period Temp Pulse Resp BP Sys/[place] Pulse Ox Last 24 Hr 98.2 F-98.7 F 92-101 16-20 108-140/56-74 100-100 GEN: Alert and follows commands RLE: +2 DP pulse, charcot foot. Small superficial wound to 2nd right toe, no erythema or drainage noted. Chronic dark brown skin changes to right dorsal surface and extending to the right lower leg. Skin intact. Ankle with limited ROM. NO edema to RLE. LLE: +2 Dp pulse without any skin changes or open wounds. No edema to LLE. CBC, BMP 03/26/19 08:18 03/26/19 08:18 A/P: 78 yo male with chronic RLE wound/skin intact. Small abrasion to 2nd right toe and knee. Local wound care with topical antibiotics No acute vascular needs, pt with palpable pulses. D/w Dr. Blanca and may follow up as needed in wound clinic
[2019-03-26] MEDS: ATORVASTATIN CA 40 MG TABLET (FP) PO SCH (21:09)
[2019-03-27] MEDS: INSULIN SLIDING SCALE (NOVOLOG) 1 VIAL SQ SCH (06:59)
[2019-03-27 08:04] LABS: BASO % 1.5 % (0-2.0); EOS % 4.7 % (0-4.5); HEMATOCRIT 29.7 % (35.4-49); HEMOGLOBIN 9.5 GM/dl (11.7-16.9); LYMPH % 14.1 % (8-40); MCH 29.7 pg (25.7-33.7); MEAN CELL VOLUME 92.9 fl (80-96); MEAN PLT VOLUME 8.5 fl (7.5-11.1); MONO % 10.2 % (3.8-10.2); NEUT % 69.5 % (42.8-82.8); PLATELET COUNT 236 K/MM3 (134-434); WHITE BLOOD COUNT 5.1 K/mm3 (4.0-10.8)
--- NOTE | 2019-03-27 08:06 | DS ---
Physical Exam: SUBJECTIVE: Patient seen and examined OBJECTIVE: Vital Signs Period Temp Pulse Resp BP Sys/[place] Pulse Ox Last 24 Hr 97.5 F-100.0 F 91-101 18-19 110-142/51-74 97-100 PHYSICAL EXAM GENERAL: The patient is awake, alert, and fully oriented, in no acute distress. HEAD: Normal with no signs of trauma. EYES: PERRL, extraocular movements intact, sclera anicteric, conjunctiva clear. ENT: Ears normal, nares patent, oropharynx clear without exudates, moist mucous membranes. NECK: Trachea midline, full range of motion, supple. LUNGS: Breath sounds equal, clear to auscultation bilaterally, no wheezes, no crackles, no accessory muscle use. HEART: Regular rate and rhythm, S1, S2 without murmur, rub or gallop. ABDOMEN: Soft, nontender, nondistended, normoactive bowel sounds, no guarding, no rebound, no hepatosplenomegaly, no masses. EXTREMITIES: 2+ pulses, warm, well-perfused, no edema. NEUROLOGICAL: Cranial nerves II through XII grossly intact. Normal speech, gait not observed. PSYCH: Normal mood, normal affect. SKIN: Warm, dry, normal turgor, no rashes or lesions noted. LABS Laboratory Results - last 24 hr 03/26/19 03/26/19 03/26/19 08:18 08:18 16:30 WBC 5.7 RBC 3.09 L Hgb 9.4 L Hct 28.4 L MCV 91.8 MCH 30.5 MCHC 33.2 RDW 14.3 Plt Count 228 MPV 8.5 Absolute Neuts (auto) 4.2 Neutrophils % 73.6 Lymphocytes % 12.6 Monocytes % 8.3 Eosinophils % 3.8 Basophils % 1.7 Sodium 140 Potassium 4.6 Chloride 116 H Carbon Dioxide 21 Anion Gap 3 L BUN 63.0 H Creatinine 1.4 H Est GFR (CKD-EPI)AfAm 56.16 Est GFR (CKD-EPI)NonAf 48.46 POC Glucometer 319 Random Glucose 194 H Calcium 8.5 Magnesium 1.8 Total Bilirubin 0.2 AST 12 L ALT 14 Alkaline Phosphatase 50 Total Protein 4.9 L Albumin 2.6 L 03/26/19 03/27/19 21:06 06:39 WBC RBC Hgb Hct MCV MCH MCHC RDW Plt Count MPV Absolute Neuts (auto) Neutrophils % Lymphocytes % Monocytes % Eosinophils % Basophils % Sodium Potassium Chloride Carbon Dioxide Anion Gap BUN Creatinine Est GFR (CKD-EPI)AfAm Est GFR (CKD-EPI)NonAf POC Glucometer 312 251 Random Glucose Calcium Magnesium Total Bilirubin AST ALT Alkaline Phosphatase Total Protein Albumin HOSPITAL COURSE: Date of Admission:03/24/19 Date of Discharge: 03/27/19 78 year-old male with a PMH significant for HTN, HLD, Type II NIDDM, and prostate cancer. Admitted following a mechanical fall. Mechanical fall Frequent falls Gait instability --CT head negative x 2 --all imaging negative for acute fractures --RLE with extensive scarring, blackened areas of skin on leg and foot, patient states 7 surgeries on the leg to close diabetic wounds; seen and evaluated by vascular, can follow up wound clinic Acute kidney injury --BUN 154.9 on admission trending down-->63 --Cr 2.5 on admission, trending down -->1.4 --improved with IV fluids Renal mass --needs CT followup Hypertension --BP stable --not on anti-hypertensives Hyperlipidemia --continue Lipitor Type II NIDDM --Novolog sliding scale coverage Prostate cancer --stable Minutes to complete discharge: 35 Discharge Summary Problems reviewed: Yes Reason For Visit: FALL Current Active Problems ADRIANE (acute kidney injury) (Acute) Gait disorder (Acute) Condition: Improved - Instructions Disposition: [facility] - Home Medications Comprehensive Discharge Medication List: Ambulatory Orders Atorvastatin Calcium 40 mg PO DAILY 03/24/19 Duloxetine HCl 60 mg PO BID 03/24/19 Furosemide [Lasix] 20 mg PO DAILY 03/24/19 Gabapentin 600 mg PO BID 03/24/19 Lisinopril [Prinivil -] 40 mg PO DAILY 03/24/19 Metformin HCl [Glucophage] 1,000 mg PO BID 03/24/19 levoFLOXacin [Levaquin -] 250 mg PO DAILY 03/24/19 This patient is new to me today: No Emergency Visit: Yes ED Registration Date: 03/24/19 Care time: The patient presented to the Emergency Department on the above date and was hospitalized for further evaluation of their emergent condition. Critical Care patient: No - Discharge Referral Referred to [facility] No
[2019-03-27 08:16] LABS: ALBUMIN 2.5 g/dl (3.4-5.0); BILIRUBIN,TOTAL 0.6 mg/dl (0.2-1); CALCIUM 8.3 mg/dl (8.5-10); MAGNESIUM 1.5 mg/dL (1.8-2.4); POTASSIUM 4.8 mmol/L (3.5-5.1); TOT PROT 4.8 g/dl (6.4-8.2)
[2019-03-27] MEDS ORDERED: MAGNESIUM SULF 50% (8.12 MEQ/2 ML-1 GM VIAL) IVPB ONE (08:34)
[2019-03-27] MEDS ORDERED: MAGNESIUM SULFATE IN WATER 2 GM/50 ML IVPB IVPB ONE (09:00)
[2019-03-27] MEDS ORDERED: BACITRACIN 15 GM TUBE TOPICAL OINTMENT TP SCH (10:00)
[2019-03-27] MEDS ORDERED: FLU VACCINE QUAD 60 MCG/0.5 ML (MDV 19-20) IM ONE (10:00)
[2019-03-27 10:14] VITALS: BP 128/58; PULSE 93; TEMP 98.9
[2019-03-27] MEDS: GABAPENTIN 300 MG CAPSULE (FP) PO SCH (10:15)
[2019-03-27] MEDS: HEPARIN NA (PORCINE) 5,000 UNITS/ML 1ML VIAL SQ SCH (10:15)
[2019-03-27] MEDS: DULoxetine HCL 30 MG CAPSULE.DR PO SCH (10:15)
[2019-03-27] MEDS: PANTOPRAZOLE 40 MG TABLET (FP) PO SCH (10:18)
[2019-03-27] MEDS: ALBUTEROL SO4 2.5/IPRATROPIUM 0.5 INH SOL 3 ML VIAL.NEB. NEB SCH (10:20)
== END 2019-03-27 11:00 | DRG 92 ==
LOC: FER 00:34 → FM/S 04:42
PROVIDERS: ADMIT Internal Medicine; ATTEND Nurse Practitioner Acute Care
DX: R26.89 Other abnormalities of gait and mobility (principal); N17.9 Acute kidney failure, unspecified; C61 Malignant neoplasm of prostate; D64.9 Anemia, unspecified; E11.69 Type 2 diabetes mellitus with other specified complication; I10 Essential (primary) hypertension; E78.5 Hyperlipidemia, unspecified; D72.829 Elevated white blood cell count, unspecified
CPT/HCPCS: 36415; 70450-TC; 71045-TC-FY; 71101-TC-RT-FY; 72125-TC; 73030-TC-RT-FY; 73502-TC-RT-FY; 73560-TC-RT-FY; 76700-TC; 76775-TC; 76856-TC; 80048; 80053; 81003; 82550; 82553; 82728; 82962; 83036; 83540; 83550; 83735; 84484; 85025; 87205; 93005; 93306-TC; 94640; 97116-GP; 97163-GP; 99283-25; G0008; J0131; J1644; J7030; Q2036